=== PATIENT | female | born 2000 | race Caucasian/White ===

== ENCOUNTER 2022-06-13 13:07 | Emergency (ER) | payer OTHER, MEDICAID ==
[~2022-06-13] VITALS: Ht 162.6 cm; Wt 84.4 kg
[2022-06-13 13:20] VITALS: BP 110/61
[2022-06-13 14:07] LABS: BASOPHILS % (AUTO) 0.3 % (0.0-2.0); EOSINOPHILS # (AUTO) 0.1 K/uL (0-0.4); EOSINOPHILS % (AUTO) 0.7 % (0.0-4.0); HEMATOCRIT 34.9 % (36-48); HEMOGLOBIN 11.7 g/dL (12.0-16.0); LYMPHOCYTES # (AUTO) 2.1 K/uL (2.5-16.5); LYMPHOCYTES % (AUTO) 24.1 % (20.5-51.1); MEAN CORPUSCULAR HEMOGLOBIN 29 pg (27-31); MEAN CORPUSCULAR HGB CONC 34 g/dL (33-37); MONOCYTES # (AUTO) 0.6 K/uL (0.8-1.0); MONOCYTES % (AUTO) 6.9 % (1.7-9.3); NEUTROPHILS # (AUTO) 5.9 K/uL (1.8-7.7); PLATELET COUNT (AUTO) 308 K/uL (140-450); RED BLOOD CELL COUNT(AUTO) 4.05 MIL/uL (4.20-5.40); RED CELL DISTRIBUTION WIDTH 14.5 % (11.6-13.7); WHITE BLOOD COUNT (AUTO) 8.6 K/uL (4.8-10.8)
[2022-06-13] MEDS: NACL 0.9% 1,000 ML IV ONE (14:07)
[2022-06-13 14:18] LABS: APPEARANCE,URINE CLEAR (CLEAR); BILIRUBIN,URINE NEGATIVE (NEGATIVE); BLOOD, URINE NEGATIVE (NEGATIVE); COLOR,URINE YELLOW (YELLOW); LEUKOCYTE ESTERASE ,URINE 1+ (NEGATIVE); NITRITE, URINE NEGATIVE (NEGATIVE); UGLUCOSE NEGATIVE (NEGATIVE)
[2022-06-13 14:31] LABS: ALBUMIN 2.7 g/dL (3.4-5.0); ANION GAP 9.8 (8-16); CARBON DIOXIDE 27.1 mmol/L (21-32); CREATININE 0.6 mg/dL (0.6-1.3); POTASSIUM 3.9 mmol/L (3.5-5.1); TOTAL BILIRUBIN 0.2 mg/dL (0.0-1.0)
[2022-06-13 14:37] LABS: RBC,URINE 0-5 /HPF (0-5)
[2022-06-13 14:38] LABS: OTHER CASTS, URINE None Seen /LPF (None Seen)
[2022-06-13] MEDS ORDERED: CEPH-588 PO (16:21)
[2022-06-13] MEDS ORDERED: cefTRIAXone 1,000 MG VIAL ONE (16:25)
[2022-06-13 17:05] VITALS: BP 105/47
== END 2022-06-13 17:05 | disposition home or self-care (01) ==
LOC: MED 13:07
DX: O26.893 Other specified pregnancy related conditions, third trimester (principal); R55 Syncope and collapse; R42 Dizziness and giddiness; J45.909 Unspecified asthma, uncomplicated; Z3A.35 35 weeks gestation of pregnancy
CPT/HCPCS: 36415; 76805; 80053; 81001; 85025; 87086; 93005; 96361; 96365; 99285; J0696; Q0092